=== PATIENT | female | born 1965 | race Caucasian/White ===

== ENCOUNTER → 2018-01-26 15:14 | Outpatient (CLI) | payer OTHER, SELFPAY ==
--- NOTE | 2018-01-26 | DI.MG.S_ITS ---
BILATERAL DIGITAL SCREENING MAMMOGRAM 3D/2D WITH CAD: 01/26/2018 CLINICAL: Routine screening. Family history of breast cancer. Comparison is made to exams dated: 09/21/2015 mammogram, 04/04/2014 mammogram, and 12/02/2012 mammogram - [facility]. There are scattered fibroglandular elements in both breasts. Current study was also evaluated with a Computer Aided Detection (CAD) system. No significant masses, calcifications, or other findings are seen in either breast. There has been no significant interval change. IMPRESSION: NEGATIVE There is no mammographic evidence of malignancy. A 1 year screening mammogram is recommended. This exam was interpreted at Station ID: [id number]. NOTE: For mammograms, a report in lay terms will be sent to the patient. Approximately 15% of breast malignancies will not be visualized mammographically. In the management of a palpable breast mass, a negative mammogram must not discourage biopsy of a clinically suspicious lesion. Electronically Signed By: Josy hicks/veronique:01/26/2018 16:47:43 copy to: HENRIQUE PARKER letter sent: Normal Exam ACR BI-RADS Category 1: Negative 3341F
== END ==
PROVIDERS: PCP Nurse Practitioner Family; Visit Provider Family Medicine
DX: Z12.31 Encounter for screening mammogram for malignant neoplasm of breast (principal); Z80.3 Family history of malignant neoplasm of breast
CPT/HCPCS: 77063; 77067

== ENCOUNTER → 2019-10-31 12:20 | Outpatient (CLI) | payer OTHER, SELFPAY ==
--- NOTE | 2019-10-31 | DI.MG.S_ITS ---
BILATERAL DIGITAL SCREENING MAMMOGRAM 3D/2D WITH CAD: 10/31/2019 CLINICAL: Routine screening. Family history of breast cancer. Comparison is made to exams dated: 01/26/2018 mammogram, 09/21/2015 mammogram, and 04/04/2014 mammogram - [facility]. There are scattered fibroglandular elements in both breasts. Current study was also evaluated with a Computer Aided Detection (CAD) system. No significant masses, calcifications, or other findings are seen in either breast. There has been no significant interval change. IMPRESSION: NEGATIVE There is no mammographic evidence of malignancy. A 1 year screening mammogram is recommended. This exam was interpreted at Station ID: [id number]. NOTE: For mammograms, a report in lay terms will be sent to the patient. Approximately 15% of breast malignancies will not be visualized mammographically. In the management of a palpable breast mass, a negative mammogram must not discourage biopsy of a clinically suspicious lesion. Electronically Signed By: Mamie manley/veronique:10/31/2019 22:05:50 letter sent: Normal Exam ACR BI-RADS Category 1: Negative 3341F
== END ==
PROVIDERS: PCP Nurse Practitioner; Referring Provider Nurse Practitioner; Visit Provider Nurse Practitioner
DX: Z12.31 Encounter for screening mammogram for malignant neoplasm of breast (principal)
CPT/HCPCS: 77063; 77067

== ENCOUNTER → 2020-01-31 08:07 | Outpatient (CLI) | payer OTHER, SELFPAY ==
[2020-01-31 08:44] LABS: Add Manual Diff / Slide Review NO; Basophils Absolute Auto 0 /uL (0-100); Basophils Percent Auto 0.5 % (0-2); Eosinophils Absolute Auto 100 /uL (0-450); Eosinophils Percent Auto 2.2 % (2-4); Hemoglobin 13.9 g/dL (12.0-16.0); Lymphocytes Absolute Auto 1800 /uL (1100-4500); Lymphocytes Percent Auto 38.9 % (25-40); Mean Corpuscular Hemoglobin 31.7 PG (26-34); Mean Corpuscular Volume 93.1 fL (80-100); Monocytes Absolute Auto 400 /uL (0-900); Monocytes Percent Auto 8.6 % (3-14); Neutrophils Absolute Auto 2300 /uL (1500-7000); Neutrophils Percent Auto 49.8 % (50-75); Platelet Count 220 X10^3/uL (150-400); White Blood Cell Count 4.6 X10^3/uL (4.5-11.0)
[2020-01-31 09:31] LABS: Alanine Aminotransferase 13 IU/L (<35); Albumin 4.2 g/dL (3.5-5.0); Albumin Globulin Ratio 1.4 (1.0-2.8); Alkaline Phosphatase 73 U/L (38-126); Aspartate Aminotransferase 34 IU/L (14-36); BUN Creatinine Ratio 17.4 (6-22); Bilirubin Total 0.4 mg/dL (0.2-1.3); Blood Urea Nitrogen 12 mg/dL (7-17); Calcium 9.7 mg/dL (8.4-10.2); Carbon Dioxide 31 mmol/L (22-32); Chloride 104 mmol/L (98-107); Estimated Glomerular Filt Rate > 60.0 mL/min (>60); Globulin 3.1 g/dL (1.7-4.1); Glucose 90 mg/dL (70-100); HEMOLYSIS < 15 (0-50); Potassium 4.6 mmol/L (3.4-5.1); Sodium 137 mmol/L (137-145); Total Protein 7.3 g/dL (6.3-8.2)
[2020-01-31 12:55] LABS: Free T3, Triiodothyronine Free 3.08 pg/mL (2.77-5.27); Free T4, Direct Thyroxine 0.74 ng/dL (0.78-2.19)
[2020-01-31 13:08] LABS: Thyroid Stimulating Hormone 2.33 uIU/mL (0.47-4.68)
[2020-01-31 13:24] LABS: Cholesterol 239 mg/dL (140-199); HDL Cholesterol 84 mg/dL (40-60); LDL Cholesterol Calculated 132 mg/dL (<100); Triglycerides 113 mg/dL (35-150)
== END ==
PROVIDERS: PCP Nurse Practitioner; Referring Provider Nurse Practitioner; Visit Provider Nurse Practitioner
DX: Z00.00 Encounter for general adult medical examination without abnormal findings (principal)
CPT/HCPCS: 36415; 80053; 80061; 84439; 84443; 84481; 85025

== ENCOUNTER → 2020-04-10 12:48 | Outpatient (CLI) | payer OTHER, SELFPAY ==
--- NOTE | 2020-04-10 12:50 | DI.RAD.S_ITS ---
PROCEDURE: XR CHEST 2V INDICATIONS: Chest pain TECHNIQUE: 2 views of the chest were acquired. COMPARISON: None. FINDINGS: Surgical changes and devices: None. Lungs and pleura: Lungs are clear. No pleural effusions or pneumothorax. Mediastinum: Mediastinal contours are normal. Heart size is normal. Bones and chest wall: No suspicious bony abnormalities. Soft tissues appear unremarkable. IMPRESSION: No acute cardiopulmonary process demonstrated radiographically. Dictated by: Reginald Gonzales M.D. on 04/10/2020 at 13:38 Approved by: Reginald Gonzales M.D. on 04/10/2020 at 13:38
[2020-04-10 13:22] LABS: Alanine Aminotransferase 14 IU/L (<35); Albumin 4.7 g/dL (3.5-5.0); Albumin Globulin Ratio 1.6 (1.0-2.8); Alkaline Phosphatase 85 U/L (38-126); Aspartate Aminotransferase 32 IU/L (14-36); BUN Creatinine Ratio 16.7 (6-22); Bilirubin Total 0.6 mg/dL (0.2-1.3); Blood Urea Nitrogen 10 mg/dL (7-17); Carbon Dioxide 30 mmol/L (22-32); Chloride 103 mmol/L (98-107); Creatine Kinase 132 U/L (30-135); Estimated Glomerular Filt Rate > 60.0 mL/min (>60); Glucose 99 mg/dL (70-100); HEMOLYSIS < 15 (0-50); Potassium 4.3 mmol/L (3.4-5.1); Sodium 138 mmol/L (137-145); Total Protein 7.7 g/dL (6.3-8.2)
[2020-04-10 13:25] LABS: Erythrocyte Sedimentation Rate 5 MM/HR (0-20)
[2020-04-10 13:34] LABS: Rheumatoid Factor 10.7 IU/mL (<12.0); Troponin I < 0.012 ng/mL (0.01-0.034)
[2020-04-10 13:35] LABS: C-Reactive Protein Quant 1.1 mg/dL (<1.0)
[2020-04-10 13:37] LABS: CKMB % Relative Index 1.2 % (1.5-5.0); Creatine Kinase MB 1.62 ng/mL (<2.37)
[2020-04-10 14:03] LABS: Free T4, Direct Thyroxine 0.88 ng/dL (0.78-2.19)
[2020-04-12 23:36] LABS: CCP Antibodies IgG/IgA 6 units (0-19)
== END ==
PROVIDERS: PCP Nurse Practitioner; Referring Provider Nurse Practitioner; Visit Provider Nurse Practitioner
DX: R07.9 Chest pain, unspecified (principal); M25.50 Pain in unspecified joint
CPT/HCPCS: 36415; 71046; 80053; 82550; 82553; 84439; 84443; 84484; 85651; 86140; 86200; 86430

== ENCOUNTER → 2020-11-01 15:38 | Outpatient (CLI) | payer OTHER, SELFPAY ==
--- NOTE | 2020-11-01 15:40 | DI.MG.S_ITS ---
BILATERAL DIGITAL SCREENING MAMMOGRAM 3D/2D WITH CAD: 11/01/2020 CLINICAL: Routine screening. Family history of breast cancer. Comparison is made to exams dated: 10/31/2019 mammogram, 01/26/2018 mammogram, and 09/21/2015 mammogram - [facility]. There are scattered fibroglandular elements in both breasts. Current study was also evaluated with a Computer Aided Detection (CAD) system. No significant masses, calcifications, or other findings are seen in either breast. There has been no significant interval change. IMPRESSION: NEGATIVE There is no mammographic evidence of malignancy. A 1 year screening mammogram is recommended. This exam was interpreted at Station ID: [id number]. NOTE: For mammograms, a report in lay terms will be sent to the patient. Approximately 15% of breast malignancies will not be visualized mammographically. In the management of a palpable breast mass, a negative mammogram must not discourage biopsy of a clinically suspicious lesion. Electronically Signed By: Mamie manley/veronique:11/01/2020 16:56:44 letter sent: Normal Exam ACR BI-RADS Category 1: Negative 3341F
== END ==
PROVIDERS: PCP Nurse Practitioner; Referring Provider Nurse Practitioner; Visit Provider Nurse Practitioner
DX: Z12.31 Encounter for screening mammogram for malignant neoplasm of breast (principal); Z80.3 Family history of malignant neoplasm of breast
CPT/HCPCS: 77063; 77067

== ENCOUNTER → 2021-04-17 07:34 | Outpatient (CLI) | payer OTHER, SELFPAY ==
[2021-04-17 08:14] LABS: Hematocrit 40.1 % (36-46); Hemoglobin 13.4 g/dL (12.0-16.0); Mean Corpuscular HGB Conc 33.4 % (30-36); Mean Corpuscular Hemoglobin 30.9 PG (26-34); Mean Corpuscular Volume 92.3 fL (80-100); Platelet Count 250 X10^3/uL (150-400); Red Blood Cell Count 4.34 X10^6/uL (4.0-5.2); White Blood Cell Count 7.2 X10^3/uL (4.5-11.0)
[2021-04-17 08:21] LABS: Hemoglobin A1C% w Est Avg Glu 4.9 % (4.0-6.0)
[2021-04-17 08:24] LABS: Alanine Aminotransferase 13 IU/L (<35); Albumin 3.9 g/dL (3.5-5.0); Albumin Globulin Ratio 1.3 (1.0-2.8); Alkaline Phosphatase 75 U/L (38-126); Aspartate Aminotransferase 33 IU/L (14-36); BUN Creatinine Ratio 20.3 (6-22); Bilirubin Total 0.6 mg/dL (0.2-1.3); Blood Urea Nitrogen 13 mg/dL (7-17); Calcium 9.6 mg/dL (8.4-10.2); Carbon Dioxide 29 mmol/L (22-32); Chloride 105 mmol/L (98-107); Cholesterol 228 mg/dL (140-199); Estimated Glomerular Filt Rate > 60.0 mL/min (>60); Globulin 2.9 g/dL (1.7-4.1); Glucose 89 mg/dL (70-100); HDL Cholesterol 86 mg/dL (40-60); HEMOLYSIS < 15 (0-50); LDL Cholesterol Calculated 123 mg/dL (<100); Potassium 3.9 mmol/L (3.4-5.1); Sodium 139 mmol/L (137-145); Total Protein 6.8 g/dL (6.3-8.2); Triglycerides 93 mg/dL (35-150)
[2021-04-17 08:53] LABS: Free T3, Triiodothyronine Free 3.81 pg/mL (2.77-5.27); Free T4, Direct Thyroxine 1.02 ng/dL (0.78-2.19)
[2021-04-17 09:06] LABS: Thyroid Stimulating Hormone 1.93 uIU/mL (0.47-4.68)
== END ==
PROVIDERS: PCP Nurse Practitioner; Referring Provider Nurse Practitioner; Visit Provider Nurse Practitioner
DX: Z00.00 Encounter for general adult medical examination without abnormal findings (principal)
CPT/HCPCS: 36415; 80053; 80061; 83036; 84439; 84443; 84481; 85027

== ENCOUNTER → 2021-11-06 15:13 | Outpatient (CLI) | payer OTHER, SELFPAY ==
--- NOTE | 2021-11-06 | DI.MG.S_ITS ---
BILATERAL DIGITAL SCREENING MAMMOGRAM 3D/2D WITH CAD: 11/06/2021 CLINICAL: Routine screening. Family history of breast cancer. Comparison is made to exams dated: 11/01/2020 mammogram, 10/31/2019 mammogram, and 01/26/2018 mammogram - [facility]. There are scattered fibroglandular elements in both breasts. Current study was also evaluated with a Computer Aided Detection (CAD) system. No significant masses, calcifications, or other findings are seen in either breast. There has been no significant interval change. IMPRESSION: NEGATIVE There is no mammographic evidence of malignancy. A 1 year screening mammogram is recommended. This exam was interpreted at Station ID: [id number]. NOTE: For mammograms, a report in lay terms will be sent to the patient. Approximately 15% of breast malignancies will not be visualized mammographically. In the management of a palpable breast mass, a negative mammogram must not discourage biopsy of a clinically suspicious lesion. Electronically Signed By: Mamie manley/veronique:11/07/2021 10:28:11 letter sent: Normal Exam ACR BI-RADS Category 1: Negative 3341F
== END ==
PROVIDERS: PCP Nurse Practitioner; Referring Provider Nurse Practitioner; Visit Provider Nurse Practitioner
DX: Z12.31 Encounter for screening mammogram for malignant neoplasm of breast (principal); Z80.3 Family history of malignant neoplasm of breast
CPT/HCPCS: 77063; 77067

== ENCOUNTER → 2022-05-20 06:46 | Outpatient (CLI) | payer OTHER, SELFPAY ==
[2022-05-20 08:28] LABS: Add Manual Diff / Slide Review NO; Basophils Absolute Auto 0 /uL (0-100); Basophils Percent Auto 0.6 % (0-2); Eosinophils Absolute Auto 100 /uL (0-450); Hemoglobin 13.6 g/dL (12.0-16.0); Lymphocytes Absolute Auto 1600 /uL (1100-4500); Lymphocytes Percent Auto 37.7 % (25-40); Mean Corpuscular HGB Conc 34.7 % (30-36); Mean Corpuscular Hemoglobin 31.6 PG (26-34); Mean Corpuscular Volume 90.9 fL (80-100); Monocytes Absolute Auto 500 /uL (0-900); Monocytes Percent Auto 10.9 % (3-14); Neutrophils Absolute Auto 2100 /uL (1500-7000); Neutrophils Percent Auto 48.8 % (50-75); Platelet Count 228 X10^3/uL (150-400); Red Cell Distribution Width 13.5 % (11.6-14.8); White Blood Cell Count 4.2 X10^3/uL (4.5-11.0)
[2022-05-20 08:39] LABS: Erythrocyte Sedimentation Rate 5 MM/HR (0-20)
[2022-05-20 08:48] LABS: Alanine Aminotransferase 11 IU/L (<35); Albumin 4.2 g/dL (3.5-5.0); Albumin Globulin Ratio 1.4 (1.0-2.8); Alkaline Phosphatase 70 U/L (38-126); Aspartate Aminotransferase 30 IU/L (14-36); BUN Creatinine Ratio 15.9 (6-22); Bilirubin Total 0.5 mg/dL (0.2-1.3); Blood Urea Nitrogen 11 mg/dL (7-17); C-Reactive Protein Quant < 0.5 mg/dL (<1.0); Calcium 9.1 mg/dL (8.4-10.2); Carbon Dioxide 28 mmol/L (22-32); Chloride 103 mmol/L (98-107); Cholesterol 246 mg/dL (140-199); Estimated Glomerular Filt Rate > 60 mL/min (>60); Globulin 3.1 g/dL (1.7-4.1); Glucose 87 mg/dL (70-100); HDL Cholesterol 84 mg/dL (40-60); HEMOLYSIS < 15 (0-50); LDL Cholesterol Calculated 143 mg/dL (<100); Potassium 3.9 mmol/L (3.4-5.1); Sodium 139 mmol/L (137-145); Total Protein 7.3 g/dL (6.3-8.2); Triglycerides 94 mg/dL (35-150)
[2022-05-20 08:49] LABS: Rheumatoid Factor 16.2 IU/mL (<12.0)
[2022-05-20 09:06] LABS: Free T3, Triiodothyronine Free 3.68 pg/mL (2.77-5.27); Free T4, Direct Thyroxine 0.93 ng/dL (0.78-2.19)
== END ==
PROVIDERS: PCP Nurse Practitioner; Referring Provider Nurse Practitioner; Visit Provider Nurse Practitioner
DX: Z82.61 Family history of arthritis (principal); Z00.00 Encounter for general adult medical examination without abnormal findings
CPT/HCPCS: 36415; 80053; 80061; 84439; 84443; 84481; 85025; 85651; 86140; 86430

== ENCOUNTER → 2022-06-09 16:09 | Outpatient (CLI) | payer OTHER, SELFPAY ==
--- NOTE | 2022-06-09 16:12 | DI.MRI.S_ITS ---
PROCEDURE: MR KNEE RT WO CON INDICATIONS: PAIN IN RIGHT KNEE TECHNIQUE: Noncontrast sagittal PD fast spin echo and T2 fast spin echo with fat saturation, sagittal 3-D FLASH with fat saturation; coronal T1 spin echo and PD fast spin echo with fat saturation, and axial PD fast spin echo with fat saturation through the knee. COMPARISON: [facility], CR, XR KNEE ARTHRITIC SERIES RT, 05/23/2022, 13:53. [facility], MR, KNEE WITHOUT CONTRAST, 09/04/2016, 19:38. FINDINGS: Image quality: Excellent. Anterior Cruciate Ligament: There is chronic appearing at least high-grade partial tearing of the proximal anterior cruciate ligament. Some of the anterior ligament fibers may remain in continuity with the origin. There is mild anterior translation of the tibial plateau relative to the distal femur. Posterior Cruciate Ligament: Intact. Medial Collateral Ligament: There is marked thinning of the proximal medial collateral ligament, consistent with a remote prior moderate to high-grade sprain. Lateral Collateral Ligament: Intact. Medial Meniscus: Possible subtle horizontal tearing of the body of the medial meniscus extending to the inner third of the tibial articular surface, which is likely chronic. Lateral Meniscus: Small focal horizontal oblique tear of the posterior horn of the lateral meniscus extending to the outer third of the tibial articular surface with a tiny 1 mm intrameniscal cyst. Medial and Lateral Tendons: The semimembranosus tendon insertions and meniscocapsular junction appear intact. Visualized portions of the pes anserinus tendons appear normal. No abnormal bursal fluid. The long and short heads of the biceps femoris tendon appear intact. The popliteus tendon appears intact. No signs of posterolateral corner injury. Iliotibial band appears normal. Anterior Structures: Mild distal quadriceps tendinosis with a small nonedematous enthesophyte at the tendon insertion. The patellar tendon is intact. No patellar subluxation. No femoral trochlear dysplasia or ventral trochlear prominence. No edema in the infrapatellar fat pad. Bones: No acute trabecular bone injury or fracture. Medial Femorotibial Cartilage: No focal cartilage defect. Lateral Femorotibial Cartilage: Mild surface irregularity of the posterior ring portion of the lateral tibial plateau with mild subchondral edema. Patellofemoral Cartilage: Mild to moderate partial-thickness cartilage irregularity is seen at the median ridge/lateral facet of the patella. Soft Tissues: There is a small joint effusion. No significant medial popliteal cyst. The musculature surrounding the knee is normal in bulk. IMPRESSION: 1. 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 There is mild anterior translation of the tibial plateau relative to the distal femur. 2. Chronic grade 2-3 sprain of the proximal medial collateral ligament. 3. Suspected subtle chronic horizontal oblique tearing of the body of the medial meniscus extending to the inner third of the tibial articular surface. 4. Small focal horizontal oblique tear of the posterior horn of the lateral meniscus extending to the outer third of the tibial articular surface with an associated 1 mm intrameniscal cyst. 5. Grade 2-3 chondromalacia in the anterior compartment at the median ridge/lateral facet of the patella. Mild grade 2 chondromalacia in the lateral compartment at the posterior portion of the lateral tibial plateau. 6. Mild distal quadriceps tendinosis. 7. Small joint effusion. Dictated by: Kyle Caruso M.D. on 06/10/2022 at 10:06 Approved by: Kyle Caruso M.D. on 06/10/2022 at 10:21
== END ==
PROVIDERS: PCP Nurse Practitioner; Referring Provider Student in an Organized Health Care Education/Training Program; Visit Provider Student in an Organized Health Care Education/Training Program
DX: S83.511A Sprain of anterior cruciate ligament of right knee, initial encounter (principal); S83.411A Sprain of medial collateral ligament of right knee, initial encounter; M22.41 Chondromalacia patellae, right knee; M25.561 Pain in right knee; M25.461 Effusion, right knee
CPT/HCPCS: 73721

== ENCOUNTER → 2022-07-22 15:52 | Outpatient (CLI) | payer OTHER, SELFPAY ==
--- NOTE | 2022-07-22 15:53 | DI.RAD.S_ITS ---
PROCEDURE: XR HAND LT MIN 3V INDICATIONS: Hand pain TECHNIQUE: 3 views of the hand(s) acquired. COMPARISON: None. FINDINGS: Bones: No fractures or dislocations. Carpal bones are normally aligned. No suspicious bony lesions. No erosions Soft tissues: No suspicious soft tissue calcifications. IMPRESSION: Normal left hand. No significant degenerative changes or erosions. Dictated by: Carlos Tay M.D. on 07/23/2022 at 8:31 Approved by: Carlos Tay M.D. on 07/23/2022 at 8:32
--- NOTE | 2022-07-22 15:53 | DI.RAD.S_ITS ---
PROCEDURE: XR HAND RT MIN 3V INDICATIONS: baseline imaging TECHNIQUE: 3 views of the hand(s) acquired. COMPARISON: None. FINDINGS: Bones: Degenerative changes of the thumb interphalangeal joint with a small osteophyte. Joint space narrowing and osteophytes of the little finger DIP joint with osteophytes, possible early subchondral erosions. No fractures or dislocations. Carpal bones are normally aligned. No suspicious bony lesions. Soft tissues: No suspicious soft tissue calcifications. IMPRESSION: Degenerative changes of the thumb interphalangeal joint and little finger DIP joint with osteophytes. Possible early erosions of the little finger DIP joint. Dictated by: Carlos Tay M.D. on 07/23/2022 at 8:29 Approved by: Carlos Tay M.D. on 07/23/2022 at 8:30
--- NOTE | 2022-07-22 15:53 | DI.RAD.S_ITS ---
PROCEDURE: XR WRIST RT MIN 3V INDICATIONS: baseline imaging TECHNIQUE: 4 views of the wrist were acquired. COMPARISON: None. FINDINGS: Bones: No fractures or dislocations. No suspicious bony lesions. Scaphoid view: Scaphoid is intact. Soft tissues: No suspicious soft tissue calcifications. IMPRESSION: No osseous lesion. If symptoms and/or clinical suspicion for pathology persists, further assessment with repeat radiographs (7-10 days) or advanced imaging (e.g. CT, MRI or bone scan) should be considered. Dictated by: Darcy Alvarado MD, PhD on 07/22/2022 at 16:56 Approved by: Darcy Alvarado MD, PhD on 07/22/2022 at 16:57
--- NOTE | 2022-07-22 15:53 | DI.RAD.S_ITS ---
PROCEDURE: XR FOOT RT MIN 3V INDICATIONS: baseline imaging TECHNIQUE: 3 views of the foot were acquired. COMPARISON: None. FINDINGS: Bones: No fractures or dislocations. No suspicious bony lesions. Mild tibiotalar joint osteoarthritis. Small plantar calcaneal bone spur. Soft tissues: No tibiotalar joint effusion. Achilles tendon appears normal. IMPRESSION: Mild tibiotalar joint osteoarthritis. Dictated by: Darcy Alvarado MD, PhD on 07/22/2022 at 16:55 Approved by: Darcy Alvarado MD, PhD on 07/22/2022 at 16:56
--- NOTE | 2022-07-22 15:53 | DI.RAD.S_ITS ---
PROCEDURE: XR FOOT LT MIN 3V INDICATIONS: baseline imaging TECHNIQUE: 3 views of the foot were acquired. COMPARISON: None. FINDINGS: Bones: No fractures or dislocations. No suspicious bony lesions. Small plantar calcaneal bone spur. Mild midfoot osteoarthritis. Mild 1st MTP joint osteoarthritis. Soft tissues: No tibiotalar joint effusion. Achilles tendon appears normal. IMPRESSION: Mild midfoot and 1st MTP joint osteoarthritis. Dictated by: Darcy Alvarado MD, PhD on 07/22/2022 at 16:55 Approved by: Darcy Alvarado MD, PhD on 07/22/2022 at 16:55
--- NOTE | 2022-07-22 15:53 | DI.RAD.S_ITS ---
PROCEDURE: XR WRIST LT MIN 3V INDICATIONS: baseline imaging TECHNIQUE: For views of the wrist were acquired. COMPARISON: None. FINDINGS: Bones: No fractures or dislocations. No suspicious bony lesions. Scaphoid view: Scaphoid is intact. Soft tissues: No suspicious soft tissue calcifications. IMPRESSION: No osseous lesion. If symptoms and/or clinical suspicion for pathology persists, further assessment with repeat radiographs (7-10 days) or advanced imaging (e.g. CT, MRI or bone scan) should be considered. Dictated by: Darcy Alvarado MD, PhD on 07/22/2022 at 16:56 Approved by: Darcy Alvarado MD, PhD on 07/22/2022 at 16:56
== END ==
PROVIDERS: PCP Nurse Practitioner; Referring Provider Nurse Practitioner; Visit Provider Nurse Practitioner
DX: M06.9 Rheumatoid arthritis, unspecified (principal); M19.072 Primary osteoarthritis, left ankle and foot; M19.071 Primary osteoarthritis, right ankle and foot
CPT/HCPCS: 73110; 73130; 73630

== ENCOUNTER → 2022-11-10 15:03 | Outpatient (CLI) | payer OTHER, SELFPAY ==
--- NOTE | 2022-11-10 | DI.MG.S_ITS ---
BILATERAL DIGITAL SCREENING MAMMOGRAM 3D/2D WITH CAD: 11/10/2022 CLINICAL: Routine screening. Family history of breast cancer. Comparison is made to exams dated: 11/06/2021 mammogram, 11/01/2020 mammogram, and 10/31/2019 mammogram - [facility]. There are scattered areas of fibroglandular density in both breasts (category b / 25%-50% glandular tissue). Current study was also evaluated with a Computer Aided Detection (CAD) system. No significant masses, calcifications, or other findings are seen in either breast. There has been no significant interval change. IMPRESSION: NEGATIVE There is no mammographic evidence of malignancy. A 1 year screening mammogram is recommended. This exam was interpreted at Station ID: [id number]. NOTE: For mammograms, a report in lay terms will be sent to the patient. Approximately 15% of breast malignancies will not be visualized mammographically. In the management of a palpable breast mass, a negative mammogram must not discourage biopsy of a clinically suspicious lesion. Electronically Signed By: Reginald Gonzales M.D., jr/veronique:11/11/2022 14:39:07 letter sent: Normal Exam ACR BI-RADS Category 1: Negative 3341F
== END ==
PROVIDERS: PCP Nurse Practitioner; Referring Provider Nurse Practitioner; Visit Provider Nurse Practitioner
DX: Z12.31 Encounter for screening mammogram for malignant neoplasm of breast (principal); Z80.3 Family history of malignant neoplasm of breast
CPT/HCPCS: 77063; 77067

== ENCOUNTER → 2023-04-21 15:20 | Outpatient (CLI) | payer OTHER, SELFPAY ==
--- NOTE | 2023-04-21 15:22 | DI.RAD.S_ITS ---
PROCEDURE: XR KNEE RT 3V INDICATIONS: ongoing Rt knee pain TECHNIQUE: 3 views of the knee were acquired. COMPARISON: [facility], MR, MR KNEE RT WO CON, 06/09/2022, 16:40. [facility], CR, XR KNEE 1 OR 2 VIEWS RIGHT, 12/22/2022, 14:07. [facility], CR, KNEE 3V RIGHT, 09/04/2016, 11:43. FINDINGS: Bones: Prior anterior cruciate ligament repair. Small bone fragments anterior to the superior margin of the tibia are stable compared to the prior exam. No acute fractures or dislocations. No suspicious bony lesions. Soft tissues: No joint effusion. No suspicious soft tissue calcifications. IMPRESSION: No acute fracture. No acute osseous lesion. If symptoms and/or clinical suspicion for pathology persists, further assessment with advanced imaging (e.g. CT, MRI or bone scan) should be considered. Dictated by: Darcy Alvarado MD, PhD on 04/21/2023 at 15:40 Approved by: Darcy Alvarado MD, PhD on 04/21/2023 at 15:42
== END ==
PROVIDERS: PCP Nurse Practitioner; Referring Provider Nurse Practitioner; Visit Provider Nurse Practitioner
DX: S83.511S Sprain of anterior cruciate ligament of right knee, sequela (principal)
CPT/HCPCS: 73562

== ENCOUNTER 2023-09-09 15:49 | Emergency (ER) | payer OTHER, SELFPAY ==
[2023-09-09 15:52] VITALS: BP 168/74; PULSE 66; RESP 18; TEMP 36.7; O2SAT 100; BMI 23.5
[2023-09-09 16:57] VITALS: PULSE 61; RESP 19; O2SAT 100
[2023-09-09 16:58] VITALS: BP 143/81; PULSE 59; RESP 20; O2SAT 100
[2023-09-09 17:00] VITALS: BP 144/66; PULSE 60; RESP 19; O2SAT 100
--- NOTE | 2023-09-09 17:27 | ED_ITS ---
HPI - Chest Pain General Chief Complaint: Chest Pain Stated Complaint: chest pain Time Seen by Provider: 09/09/23 17:13 Source: patient Mode of arrival: Ambulatory Limitations: no limitations History of Present Illness HPI narrative: Patient is a 58-year-old female who was sent from the walk-in clinic for evaluation of left-sided chest discomfort. She states that it started just over 48 hours ago. Over the weekend she stated that she did spend quite a bit of time doing physical activities to include hiking and paddle boarding. There was no specific trauma. She states that the pain is worse with palpation. It is worse when she takes a deep breath. There are no rashes over the area. She does have a history of RA. She has never had an RA flare in this area but states she has had very sudden onset of discomfort in her shoulder and jaw and in her wrist which has been diagnosed with RA. She was on hydroxychloroquine up until the beginning of August when her 6th grade teacher took her off this medici ne. Related Data Home Medications Medication Instructions Recorded Confirmed diphenhydramine HCl 25 mg capsule 25 mg PO BEDTIME 02/27/21 09/09/23 (Benadryl) fluticasone propionate 50 1 spray intranasal Q12H 02/27/21 09/09/23 mcg/actuation nasal spray,suspension hydrocortisone 1 % topical cream 1 applic topical TID PRN 02/27/21 09/09/23 (Cortizone-10) phenylephrine 0.1 %-hypromellose drp ophthalmic (eye) PRN allergies 02/27/21 09/09/23 0.3 %-glycerin 0.25 % (PF) eye drops tetrahydrozoline 0.05 %-zinc 0.25 drp ophthalmic (eye) PRN allergies 02/27/21 09/09/23 % eye drops hydroxychloroquine 100 mg tablet 100 mg PO DAILY 04/27/23 09/09/23 Previous Rx's Medication Instructions Recorded clobetasol 0.05 % scalp solution 1 applictn topical BID PRN scalp 11/07/19 itchiness #50 mL triamcinolone acetonide 0.1 % 1 applictn topical DAILY PRN 11/07/19 topical ointment vaginal irritation #15 grams prednisone 5 mg tablet 5 mg PO DAILY #4 tabs 01/29/23 Allergies Allergy/AdvReac Type Severity Reaction Status Date / Time No Known Drug Allergies Allergy Unverified 09/09/23 15:19 Review of Systems Constitutional Constitutional: Reports system reviewed and no additional complaints, except as documented Cardiovascular Cardiovascular: Reports system reviewed and no additional complaints, except as documented Respiratory Respiratory: Reports system reviewed and no additional complaints, except as documented Integumentary/Breasts Skin/Breast: Reports system reviewed and no additional complaints, except as documented Hematologic/Lymphatic On Anticoagulants: No Patient History Medical History Rheumatoid arthritis Family history of rheumatoid arthritis Elevated LDL cholesterol level Depression with anxiety Psoriasis Eczema Seasonal allergies Anxiety Ankle pain Chicken pox Back pain Migraines Seborrheic dermatitis of scalp Lichen sclerosus of female genitalia Surgical History (Updated 04/30/23 @ 16:06 by Junie Mitchell DO) S/P ACL repair Anesthesia History of removal of neck cyst (~2014) History of tonsillectomy Family History Brother Suicide Social History Smoking Status: Never smoker Smoking Status: Never smoker Exam Initial Vital Signs Initial Vital Signs: Vital Signs Temperature 98.0 F 09/09/23 15:52 Pulse Rate 66 09/09/23 15:52 Respiratory Rate 18 09/09/23 15:52 Blood Pressure 168/74 H 09/09/23 15:52 Pulse Oximetry 100 09/09/23 15:52 Oxygen Delivery Method Room Air 09/09/23 15:52 HENMT Head: normal to inspection Chest Chest: No crepitus and tenderness (Left-sided anterior chest wall) Resp Effort & Inspection: normal respiratory effort Auscultation: clear to auscultation bilaterally Cardio Rate: regular rate Rhythm: regular rhythm Skin General: no rashes or lesions noted Course Orders Ordered: ED Orders 09/09/23 16:05 EKG-12 Lead Stat Vital Signs Vital signs: Vital Signs - 8 hr 09/09/23 15:52 Temperature 98.0 F Pulse Rate 66 Respiratory Rate 18 Blood Pressure 168/74 H Pulse Oximetry 100 Oxygen Delivery Method Room Air MDM - Chest Pain ECG Data Attestation: I personally reviewed and interpreted this ECG as follows: Interpretation: Sinus rhythm Ventricular rate is 63 Normal axis Normal QRS Normal QTC No ST T wave changes MDM Narrative Medical decision making narrative: Patient has reproducible left-sided chest wall discomfort. Clinically does not have pneumonia she has no fever no productive cough and clear lungs. No rash over the area concerning for zoster. I have low suspicion that this is ACS given the fact that it is reproducible. Her EKG is unremarkable. Discussed options to include starting her back on her hydroxychloroquine versus continued conservative measures and follow-up with her primary doctor. Patient would like to hold on starting anything for now. She will contact her doctor in order to have labs drawn. Will discharge patient home with return precautions. Discharge Plan Departure Patient Disposition: Home Clinical Impression: Left-sided chest wall pain Activity Restrictions/Additional Instructions: Recommend that you continue with conservative measures such as avoiding activities that make your symptoms worse. I also recommend you contact your primary doctor and also your 6th grade teacher to discuss follow-up. Return to the emergency department for new symptoms. Prescriptions: No Action prednisone 5 mg tablet 5 mg PO DAILY Qty: 4 0RF clobetasol 0.05 % solution 1 applictn TOP BID PRN (Reason: scalp itchiness) Qty: 50 1RF Rx Instructions: Apply to affected area twice a day as needed. triamcinolone acetonide 0.1 % ointment 1 applictn TOP DAILY PRN (Reason: vaginal irritation) Qty: 15 1RF Rx Instructions: Apply thin layer to affected area daily as needed. hydrocortisone [Cortizone-10] 1 % cream 1 applic topical TID PRN cnkwuuyufaijd-cwxpqdd-wii (PF) 0.1-0.3-0.25 % drops ophthalmic (eye) PRN (Reason: allergies) tetrahydrozoline-zinc 0.05-0.25 % drops ophthalmic (eye) PRN (Reason: allergies) fluticasone propionate 50 mcg/actuation spray,suspension 1 spray intranasal Q12H Rx Instructions: administer into each nostril diphenhydramine HCl [Benadryl] 25 mg capsule 25 mg PO BEDTIME hydroxychloroquine 100 mg tablet 100 mg PO DAILY Referrals: Kimberly Lackey ARNP [Primary Care Provider] - Stand Alone Forms: Patient Portal/API
[2023-09-09 17:30] VITALS: BP 142/80; PULSE 60; RESP 26; O2SAT 100
[2023-09-09 17:38] VITALS: BP 142/80; PULSE 55; RESP 14; O2SAT 100
== END 2023-09-09 17:39 | disposition home or self-care (01) ==
PROVIDERS: Emergency Provider Emergency Medicine; PCP Nurse Practitioner
DX: R07.89 Other chest pain (principal)
CPT/HCPCS: 93005; 99281; 99283

== ENCOUNTER → 2023-09-21 07:10 | Outpatient (CLI) | payer OTHER, SELFPAY ==
[2023-09-21 07:45] LABS: Add Manual Diff / Slide Review NO; Basophils Absolute Auto 0 /uL (0-100); Basophils Percent Auto 0.7 % (0-2); Eosinophils Absolute Auto 100 /uL (0-450); Eosinophils Percent Auto 1.5 % (2-4); Hematocrit 40.4 % (36-46); Hemoglobin 13.8 g/dL (12.0-16.0); Lymphocytes Absolute Auto 1300 /uL (1100-4500); Lymphocytes Percent Auto 19.5 % (25-40); Mean Corpuscular HGB Conc 34.1 % (30-36); Mean Corpuscular Hemoglobin 30.9 PG (26-34); Mean Corpuscular Volume 90.6 fL (80-100); Monocytes Absolute Auto 800 /uL (0-900); Neutrophils Absolute Auto 4600 /uL (1500-7000); Neutrophils Percent Auto 67.3 % (50-75); Platelet Count 281 X10^3/uL (150-400); Red Blood Cell Count 4.46 X10^6/uL (4.0-5.2); White Blood Cell Count 6.9 X10^3/uL (4.5-11.0)
[2023-09-21 08:19] LABS: Erythrocyte Sedimentation Rate 43 MM/HR (0-20)
[2023-09-21 08:44] LABS: Alanine Aminotransferase 11 IU/L (<35); Albumin 4.1 g/dL (3.5-5.0); Albumin Globulin Ratio 1.4 (1.0-2.8); Alkaline Phosphatase 87 U/L (38-126); Aspartate Aminotransferase 28 IU/L (14-36); BUN Creatinine Ratio 16.9 (6-22); Bilirubin Total 0.6 mg/dL (0.2-1.3); Blood Urea Nitrogen 11 mg/dL (7-17); Calcium 10.1 mg/dL (8.4-10.2); Carbon Dioxide 29 mmol/L (22-32); Chloride 101 mmol/L (98-107); Cholesterol 193 mg/dL (140-199); Estimated Glomerular Filt Rate > 60 mL/min (>60); Glucose 84 mg/dL (70-100); HDL Cholesterol 88 mg/dL (40-60); HEMOLYSIS < 15 (0-50); LDL Cholesterol Calculated 93 mg/dL (<100); Potassium 3.9 mmol/L (3.4-5.1); Sodium 136 mmol/L (137-145); Total Protein 7.1 g/dL (6.3-8.2); Triglycerides 60 mg/dL (35-150)
[2023-09-21 08:48] LABS: C-Reactive Protein Quant 1.6 mg/dL (<1.0)
[2023-09-21 08:49] LABS: Rheumatoid Factor < 8.6 IU/mL (<12.0)
[2023-09-21 09:14] LABS: TSH w/ Reflex to FT4 2.46 uIU/mL (0.47-4.68)
[2023-09-21 17:43] LABS: HIV 1 & 2 Ab/Ag 4th Gen Combo NEGATIVE (NEGATIVE); Hep C Virus Ab w/Reflex Quant NEGATIVE s/c (NEGATIVE)
[2023-09-23 15:36] LABS: CCP Antibodies IgG/IgA 7 units (0-19)
== END ==
PROVIDERS: PCP Nurse Practitioner; Referring Provider Internal Medicine Rheumatology; Visit Provider Internal Medicine Rheumatology
DX: Z00.00 Encounter for general adult medical examination without abnormal findings (principal); M06.9 Rheumatoid arthritis, unspecified; Z13.29 Encounter for screening for other suspected endocrine disorder; M05.721 Rheumatoid arthritis with rheumatoid factor of right elbow without organ or systems involvement; M05.722 Rheumatoid arthritis with rheumatoid factor of left elbow without organ or systems involvement; E78.00 Pure hypercholesterolemia, unspecified; Z11.3 Encounter for screening for infections with a predominantly sexual mode of transmission; Z11.59 Encounter for screening for other viral diseases
CPT/HCPCS: 36415; 80053; 80061; 84443; 85025; 85651; 86140; 86200; 86430; 86803; 87389

== ENCOUNTER → 2023-11-17 14:18 | Outpatient (CLI) | payer OTHER, SELFPAY ==
--- NOTE | 2023-11-17 | DI.MG.S_ITS ---
BILATERAL DIGITAL SCREENING MAMMOGRAM 3D/2D WITH CAD: 11/17/2023 CLINICAL: Routine screening. Family history of breast cancer. Comparison is made to exams dated: 11/10/2022 mammogram, 11/06/2021 mammogram, and 11/01/2020 mammogram - [facility]. There are scattered areas of fibroglandular density in both breasts (category b / 25%-50% glandular tissue). Current study was also evaluated with a Computer Aided Detection (CAD) system. No significant masses, calcifications, or other findings are seen in either breast. There has been no significant interval change. IMPRESSION: NEGATIVE There is no mammographic evidence of malignancy. A 1 year screening mammogram is recommended. Based on the Tyrer Cuzick model (a risk assessment model) the patient's lifetime risk is 15.0% and her 10 year risk is 5.6%. According to the ACR, ACS, and NCCN guidelines, an annual breast MRI exam along with mammogram is recommended if the patient's lifetime risk is 20% or greater. This exam was interpreted at Station ID: [id number]. NOTE: For mammograms, a report in lay terms will be sent to the patient. Approximately 15% of breast malignancies will not be visualized mammographically. In the management of a palpable breast mass, a negative mammogram must not discourage biopsy of a clinically suspicious lesion. Electronically Signed By: Quita Burton M.D., PH.D eb/veronique:11/17/2023 16:04:07 letter sent: Normal Exam ACR BI-RADS Category 1: Negative 3341F
== END ==
LOC: MAMMO 14:19
PROVIDERS: PCP Nurse Practitioner; Referring Provider Nurse Practitioner; Visit Provider Nurse Practitioner
DX: Z12.31 Encounter for screening mammogram for malignant neoplasm of breast (principal); Z80.3 Family history of malignant neoplasm of breast; R92.323 Mammographic fibroglandular density, bilateral breasts
CPT/HCPCS: 77063; 77067

== ENCOUNTER → 2024-05-30 15:17 | Outpatient (CLI) | payer OTHER, SELFPAY ==
--- NOTE | 2024-05-30 15:18 | DI.US.S_ITS ---
PROCEDURE: US ABDOMEN LIMITED INDICATIONS: lump in chest TECHNIQUE: Real-time focused scanning was performed of the abdomen, with image documentation. COMPARISON: None. FINDINGS: Mildly irregular appearance of the sternoclavicular joints bilaterally, greater on the left than on the right, likely related to degenerative changes but not well evaluated on this exam. No fluid collection is seen. IMPRESSION: Mild irregularity of the sternoclavicular joints is likely related to degenerative changes. MRI or CT could be performed for further evaluation if indicated clinically. Approved by: Kyle Caruso M.D. on 05/30/2024 at 21:21
== END ==
LOC: US 15:18
PROVIDERS: PCP Family Medicine; Referring Provider Family Medicine; Visit Provider Family Medicine
DX: R22.2 Localized swelling, mass and lump, trunk (principal)
CPT/HCPCS: 76705

== ENCOUNTER → 2024-09-20 06:47 | Outpatient (CLI) | payer OTHER, SELFPAY ==
[2024-09-20 07:50] LABS: Add Manual Diff / Slide Review NO; Basophils Absolute Auto 0 /uL (0-100); Basophils Percent Auto 1.1 % (0-2); Eosinophils Absolute Auto 100 /uL (0-450); Eosinophils Percent Auto 2.4 % (2-4); Hematocrit 39.9 % (36-46); Hemoglobin 13.5 g/dL (12.0-16.0); Lymphocytes Absolute Auto 1300 /uL (1100-4500); Lymphocytes Percent Auto 44.4 % (25-40); Mean Corpuscular HGB Conc 33.7 % (30-36); Mean Corpuscular Hemoglobin 30.8 PG (26-34); Mean Corpuscular Volume 91.3 fL (80-100); Monocytes Absolute Auto 300 /uL (0-900); Monocytes Percent Auto 10.7 % (3-14); Neutrophils Absolute Auto 1200 /uL (1500-7000); Neutrophils Percent Auto 41.4 % (50-75); Platelet Count 223 X10^3/uL (150-400); Red Blood Cell Count 4.37 X10^6/uL (4.0-5.2); Red Cell Distribution Width 13.3 % (11.6-14.8)
[2024-09-20 08:09] LABS: Erythrocyte Sedimentation Rate 5 MM/HR (0-20)
[2024-09-20 08:37] LABS: HEMOLYSIS < 15 (0-50); Iron 125 ug/dL (37-170)
[2024-09-20 08:39] LABS: Alanine Aminotransferase 16 IU/L (<35); Albumin 4.1 g/dL (3.5-5.0); Albumin Globulin Ratio 1.7 (1.0-2.8); Alkaline Phosphatase 67 U/L (38-126); Aspartate Aminotransferase 35 IU/L (14-36); BUN Creatinine Ratio 11.9 (6-22); Bilirubin Total 0.5 mg/dL (0.2-1.3); Blood Urea Nitrogen 8 mg/dL (7-17); Calcium 9.7 mg/dL (8.4-10.2); Carbon Dioxide 28 mmol/L (22-32); Chloride 105 mmol/L (98-107); Cholesterol 253 mg/dL (140-199); Estimated Glomerular Filt Rate > 60 mL/min (>60); Globulin 2.4 g/dL (1.7-4.1); Glucose 89 mg/dL (70-100); HDL Cholesterol 84 mg/dL (40-60); LDL Cholesterol Calculated 146 mg/dL (<100); Potassium 3.8 mmol/L (3.4-5.1); Sodium 137 mmol/L (137-145); Total Protein 6.5 g/dL (6.3-8.2); Triglycerides 113 mg/dL (35-150)
[2024-09-20 08:44] LABS: C-Reactive Protein Quant < 0.5 mg/dL (<1.0)
[2024-09-20 08:49] LABS: Percent Iron Saturation 59 % (15-50); Total Iron Binding Capacity 212 ug/dL (265-497); Transferrin 205 mg/dL (206-381)
[2024-09-20 09:17] LABS: Ferritin 66 ng/mL (11-264); HEMOLYSIS < 15 (0-50)
[2024-09-20 09:46] LABS: Folate 14.7 ng/mL (2.76-20.0); Vitamin B12 258 pg/mL (239-931)
[2024-09-24 02:39] LABS: Zinc 62 ug/dL (44-115)
== END ==
PROVIDERS: PCP Family Medicine; Referring Provider Internal Medicine Rheumatology; Visit Provider Internal Medicine Rheumatology
DX: M06.9 Rheumatoid arthritis, unspecified (principal); F41.8 Other specified anxiety disorders; Z79.899 Other long term (current) drug therapy; E78.00 Pure hypercholesterolemia, unspecified; R53.83 Other fatigue; Z13.6 Encounter for screening for cardiovascular disorders
CPT/HCPCS: 36415; 80053; 80061; 82607; 82728; 82746; 83540; 83550; 84630; 85025; 85651; 86140

== ENCOUNTER → 2024-12-19 08:07 | Outpatient (CLI) | payer OTHER, SELFPAY ==
--- NOTE | 2024-12-19 08:08 | DI.MG.S_ITS ---
MM screening mammo BI: 12/19/2024. BI-RADS: 2 CLINICAL: 59-year old female for bilateral screening mammogram. Tyrer-Cuzick lifetime risk of 10.9%. Current reported family history of breast cancer: mother. PRIOR EXAMS 11/17/2023, 11/10/2022, 11/06/2021, 11/01/2020, 10/31/2019, 01/26/2018, 09/21/2015. MAMMOGRAPHY TECHNIQUE: 2D and 3D (tomosynthesis) digital mammographic views obtained, with additional images as needed for full coverage. Current study was also evaluated with a Computer Aided Detection (CAD) system. DENSITY B. There are scattered areas of fibroglandular density. MAMMOGRAPHY FINDINGS Bilateral: Benign-appearing calcifications noted. There are no suspicious masses, calcifications, or other findings in the breast. No significant change from comparison. IMPRESSION: * No evidence of malignancy with benign findings. RECOMMENDATIONS Bilateral * Annual screening mammography. OVERALL ASSESSMENT CATEGORY BI-RADS-2: Benign. The [employer] recommends annual screening mammography beginning at age 40 for women with average risk of breast cancer. ELECTRONICALLY SIGNED: Adriane Rob M.D. on 12/19/2024 at 02:55:15 PM PT Interpreting Station ID: [id number]
== END ==
LOC: MAMMO 08:08
PROVIDERS: PCP Family Medicine; Referring Provider Family Medicine; Visit Provider Family Medicine
DX: Z12.31 Encounter for screening mammogram for malignant neoplasm of breast (principal); Z80.3 Family history of malignant neoplasm of breast
CPT/HCPCS: 77063; 77067

== ENCOUNTER → 2025-03-16 06:39 | Outpatient (CLI) | payer OTHER, SELFPAY ==
[2025-03-16 08:12] LABS: Add Manual Diff / Slide Review NO; Hematocrit 39.2 % (36-46); Hemoglobin 13.6 g/dL (12.0-16.0); Lymphocytes Absolute Auto 1600 /uL (1100-4500); Mean Corpuscular HGB Conc 34.8 % (30-36); Mean Corpuscular Hemoglobin 31.8 PG (26-34); Mean Corpuscular Volume 91.4 fL (80-100); Platelet Count 239 X10^3/uL (150-400)
[2025-03-16 08:28] LABS: Alanine Aminotransferase 21 IU/L (<35); Albumin 4.3 g/dL (3.5-5.0); Albumin Globulin Ratio 1.7 (1.0-2.8); Alkaline Phosphatase 64 U/L (38-126); Blood Urea Nitrogen 15 mg/dL (7-17); Calcium 9.6 mg/dL (8.4-10.2); Carbon Dioxide 30 mmol/L (22-32); Chloride 103 mmol/L (98-107); Cholesterol 235 mg/dL (140-199); Estimated Glomerular Filt Rate > 60 mL/min (>60); Globulin 2.5 g/dL (1.7-4.1); Glucose 81 mg/dL (70-99); HDL Cholesterol 97 mg/dL (40-60); HEMOLYSIS < 15 (0-50); Potassium 4.3 mmol/L (3.4-5.1); Sodium 138 mmol/L (137-145); Total Protein 6.8 g/dL (6.3-8.2); Triglycerides 82 mg/dL (35-150)
[2025-03-16 08:45] LABS: HEMOLYSIS < 15 (0-50); Iron 125 ug/dL (37-170)
[2025-03-16 08:46] LABS: Vitamin D 25 Hydroxy (D3) 22.6 ng/mL (30.0-100.0)
[2025-03-16 09:01] LABS: Percent Iron Saturation 47 % (15-50); Total Iron Binding Capacity 265 ug/dL (265-497); Transferrin 237 mg/dL (206-381)
[2025-03-16 09:03] LABS: Ferritin 56 ng/mL (11-264)
[2025-03-16 09:53] LABS: Folate 15.6 ng/mL (2.76-20.0); Vitamin B12 259 pg/mL (239-931)
== END ==
PROVIDERS: PCP Family Medicine; Referring Provider Family Medicine; Visit Provider Family Medicine
DX: B35.1 Tinea unguium (principal); M06.9 Rheumatoid arthritis, unspecified; E78.00 Pure hypercholesterolemia, unspecified; F41.8 Other specified anxiety disorders
CPT/HCPCS: 36415; 80053; 80061; 82306; 82607; 82728; 82746; 83540; 83550; 85025